=== PATIENT | female | born 1965 | race African-American/Black ===

== ENCOUNTER 2018-12-01 01:15 | Emergency (ER) | payer SELFPAY ==
[2018-12-01] MEDS ORDERED: Ibuprofen 400 MG TAB ONE (01:44)
== END 2018-12-01 01:55 | disposition home or self-care (01) ==
LOC: MADERS 01:15
DX: S39.012A Strain of muscle, fascia and tendon of lower back, initial encounter (principal); E78.5 Hyperlipidemia, unspecified; E11.9 Type 2 diabetes mellitus without complications; Z79.4 Long term (current) use of insulin; E03.9 Hypothyroidism, unspecified; I10 Essential (primary) hypertension; E66.9 Obesity, unspecified; F32.9 Major depressive disorder, single episode, unspecified; X58.XXXA Exposure to other specified factors, initial encounter
CPT/HCPCS: 99283

== ENCOUNTER 2020-07-10 15:34 | Emergency (ER) | payer BC, SELFPAY ==
[~2020-07-10 15:34] MED LIST: Iopamidol 370 76% 125 ML VIAL FS ONE
--- NOTE | 2020-07-10 16:58 | RAD ---
XR Chest 1 View Portable HISTORY: Chest pain COMPARISON: 08/04/2011 FINDINGS: The heart size is normal. The lungs are well expanded without focal areas of consolidation, pneumoth orax or pleural effusions. Mild bilateral interstitial infiltrates are seen, new since the last exam. There are degenerative silvia nges in the spine.
[2020-07-10 17:37] LABS: #Eosinphils 0.2 thou/uL (0.0-0.7); #Monocytes 0.5 thou/uL (0.11-0.59); #Neutrophils 5.2 thou/uL (1.40-6.50); %Basophils 0.5 % (0.0-1.0); %Eosinophils 2.1 % (0.0-10.0); %Lymphocytes 25.1 % (21.0-51.0); %Monocytes 6.1 % (0.0-10.0); %Neutrophils 66.2 % (42.0-75.0); Hemoglobin 12.8 g/dL (12.0-16.0); Mean Corpuscular HGB CONC 32.1 g/dL (32.0-36.0); Mean Corpuscular Hemoglobin 26.5 pg (27.0-31.0); Mean Corpuscular Volume 82.8 fL (78.0-98.0); Mean Platelet Volume 6.4 fL (7.4-10.4); Platelet Count 226 thou/uL (130-400); RBC Distribution Width 14.9 % (11.5-14.5); Red Blood Cell (RBC) Count 4.81 mill/uL (4.20-5.40); White Blood Cell (WBC) Count 7.8 thou/uL (4.8-10.8)
[2020-07-10 17:52] LABS: ALT (SGPT) 25 U/L (8-55); AST (SGOT) 21 U/L (5-34); Albumin 3.2 g/dL (3.5-5.0); Alkaline Phosphatase 160 U/L (40-110); Anion Gap 16 mmol/L (10-20); BUN (Urea Nitrogen) 8 mg/dL (9.8-20.1); Bilirubin, Total 0.5 mg/dL (0.2-1.2); Calc. Creatinine Clearance 0 mL/min (70-130); Calcium 8.3 mg/dL (7.8-10.44); Carbon Dioxide 23 mmol/L (22-29); Chloride 105 mmol/L (98-107); Estimated GFR-MDRD 73; Globulin 4.1 g/dL (2.4-3.5); Glucose 163 mg/dL (70-105); Lipase 22 U/L (8-78); Potassium 3.2 mmol/L (3.5-5.1); Protein, Total 7.3 g/dL (6.0-8.3); Sodium 141 mmol/L (136-145)
[2020-07-10] MEDS ORDERED: predniSONE 20 MG TAB ONE (18:16)
[2020-07-10] MEDS ORDERED: Sodium Chloride 0.9% 500 ML ONE (18:16)
[2020-07-10] MEDS ORDERED: Potassium Chloride 20 MEQ TAB ONE (18:18)
--- NOTE | 2020-07-10 20:39 | CT ---
CT PULMONARY ANGIOGRAM WITH IV CONTRAST AND 3D MIP RECONSTRUCTIONS: Date: 07/10/2020 PROVIDED CLINICAL HISTORY: Chest pain and shortness of breath. FINDINGS: No comparisons. The contrast bolus is suboptimal. There is no evidence for central or proximal segmental pulmonary em bolus. Vascular calcification is seen. There is no evidence for thoracic lymph node enlargement. There are multifocal parenchymal opacities consisting of primarily ground-glass opacity and interstit ial thickening. These are predominantly peripherally located. There is relative sparing of the lung b ases. There is no pleural fluid or pneumothorax apparent. The airway appears patent and of normal joselyn iber. The visualized portions of the upper abdomen demonstrate no acute abnormality. The osseous stru ctures demonstrate no concerning lytic or blastic lesions. There is a mild pericardial effusion. IMPRESSION: 1. Limited study without evidence for central or proximal segmental pulmonary embolus. 2. Multifocal parenchymal opacities, nonspecific, but typical for COVID pneumonia. 3. Mild pericardial effusion. POS: FIDELIA
[2020-07-10 20:52] LABS: Troponin I Less than 0.010 ng/mL (< 0.028)
== END 2020-07-10 21:10 | disposition home or self-care (01) ==
LOC: MADERS 15:34
DX: R07.9 Chest pain, unspecified (principal); Z86.19 Personal history of other infectious and parasitic diseases; I25.10 Atherosclerotic heart disease of native coronary artery without angina pectoris; E11.9 Type 2 diabetes mellitus without complications; E03.9 Hypothyroidism, unspecified; E78.5 Hyperlipidemia, unspecified; E78.00 Pure hypercholesterolemia, unspecified; I10 Essential (primary) hypertension; E66.9 Obesity, unspecified; F32.9 Major depressive disorder, single episode, unspecified; Z79.82 Long term (current) use of aspirin; Z79.4 Long term (current) use of insulin; Z79.899 Other long term (current) drug therapy
CPT/HCPCS: 36415; 71045; 71275; 80053; 83690; 84484; 85025; 85379; 93005; 96360; J7030; J7512; Q9967

== ENCOUNTER 2020-09-09 10:40 | Outpatient (CLI) | payer BC ==
--- NOTE | 2020-09-09 10:59 | RAD ---
XR Chest Pa Lat STANDARD HISTORY: Pneumonia COMPARISON: 07/10/2020 FINDINGS: The heart size is normal. The lungs are well expanded without focal areas of consolidation, pneumothorax or pleural effusions. IMPRESSION: No radiographic evidence of acute cardiopulmonary process.
== END 2020-09-09 10:41 | disposition home or self-care (01) ==
LOC: MADLAB 10:40 → MADRAD 10:41
PROVIDERS: ATTEND Internal Medicine Sleep Medicine
DX: U07.1 COVID-19 (principal); J18.9 Pneumonia, unspecified organism
CPT/HCPCS: 71046

== ENCOUNTER 2021-12-25 11:14 | Outpatient (CLI) | payer OTHER | END 2021-12-25 11:15 | disposition home or self-care (01) | LOC: MADLAB 11:14 | PROVIDERS: ATTEND Physician Assistant | DX: Z01.818 Encounter for other preprocedural examination (principal) | CPT/HCPCS: 71046 ==

== ENCOUNTER 2023-02-18 10:38 | Emergency (ER) | payer OTHER, MEDICAID ==
[2023-02-18] MEDS ORDERED: Acetaminophen/Codeine 30-300mg Tablet ONE (12:56)
== END 2023-02-18 13:45 | disposition home or self-care (01) ==
LOC: MADERS 10:38
DX: S73.102A Unspecified sprain of left hip, initial encounter (principal); M16.12 Unilateral primary osteoarthritis, left hip; I25.10 Atherosclerotic heart disease of native coronary artery without angina pectoris; E11.9 Type 2 diabetes mellitus without complications; E03.9 Hypothyroidism, unspecified; I10 Essential (primary) hypertension; E66.9 Obesity, unspecified; E78.00 Pure hypercholesterolemia, unspecified; W54.1XXA Struck by dog, initial encounter; Y93.01 Activity, walking, marching and hiking; Z79.4 Long term (current) use of insulin; Z79.82 Long term (current) use of aspirin; Z79.899 Other long term (current) drug therapy

== ENCOUNTER 2023-06-02 12:40 | Outpatient (CLI) | payer OTHER | END 2023-06-02 12:41 | disposition home or self-care (01) | LOC: MADRAD 12:40 | PROVIDERS: ATTEND Orthopaedic Surgery | DX: M54.50 Low back pain, unspecified (principal); M47.816 Spondylosis without myelopathy or radiculopathy, lumbar region | CPT/HCPCS: 72120 ==

== ENCOUNTER 2023-09-29 13:07 | Outpatient (CLI) | payer OTHER, MEDICAID | END 2023-09-29 13:08 | disposition home or self-care (01) | LOC: MADRAD 13:07 | PROVIDERS: ATTEND Orthopaedic Surgery | DX: M54.2 Cervicalgia (principal); M47.812 Spondylosis without myelopathy or radiculopathy, cervical region | CPT/HCPCS: 72040 ==

== ENCOUNTER 2024-07-30 11:03 | Emergency (ER) | payer MEDICARE ==
[2024-07-30 11:31] LABS: Bilirubin Negative (Negative); Blood, Urine Trace (Negative); Glucose, Urine (Dipstick) Negative (Negative); Ketone, Urine Negative (Negative); Leukocyte Negative (Negative); Nitrite Negative (Negative); Protein, Urine (Dipstick) Negative (Neg-Trace); Specific Gravity, Urine 1.015 (1.005-1.030); pH, Urine 6.5 (5.0-9.0)
[2024-07-30 11:32] LABS: Clarity Hazy (Clear)
[2024-07-30 11:39] LABS: CAUTI Indications for Culture Pelvic or flank pain; RBC/HPF 0-3 HPF (0-3); WBC/HPF 0-3 HPF (0-3)
[2024-07-30 11:40] LABS: Bacteria/HPF Rare-Few HPF (None Seen)
[2024-07-30] MEDS ORDERED: Ondansetron PF 4 MG/2 ML Vial ONE (11:40)
[2024-07-30] MEDS ORDERED: Famotidine/PF 20 mg/2ml Vial ONE (11:40)
[2024-07-30 11:41] LABS: Urine Culture Reflex No No
[2024-07-30 11:55] LABS: ALT (SGPT) 593 U/L (8-55); AST (SGOT) 1034 U/L (5-34); Albumin 3.3 g/dL (3.4-4.8); Alkaline Phosphatase 201 U/L (40-110); Anion Gap 11 mmol/L (10-20); BUN (Urea Nitrogen) 12 mg/dL (9.8-20.1); Bilirubin, Total 1.7 mg/dL (0.2-1.2); Calc. Creatinine Clearance 0 mL/min (70-130); Calcium 9.1 mg/dL (7.8-10.44); Carbon Dioxide 29 mmol/L (23-31); Chloride 107 mmol/L (98-107); Estimated GFR 62; Globulin 4.3 g/dL (2.4-3.5); Glucose 182 mg/dL (80-115); Potassium 3.5 mmol/L (3.5-5.1); Protein, Total 7.6 g/dL (5.8-8.1); Sodium 143 mmol/L (136-145)
[2024-07-30 12:01] LABS: Band 2 % (5-11); Hematocrit 42.3 % (36.0-47.0); Hemoglobin 13.5 g/dL (12.0-16.0); Lymphocytes 10 % (21-51); MDiff Complete? YES; Mean Corpuscular Hemoglobin 27.1 pg (27.0-31.0); Mean Corpuscular Volume 84.7 fl (78.0-98.0); Monocytes 5 % (0-10); Neutrophil 83 % (42-75); Platelet Count 188 10x3/uL (130-400); RBC Distribution Width 12.8 % (11.5-14.5); Red Blood Cell (RBC) Count 4.99 mill/uL (4.20-5.40); White Blood Cell (WBC) Count 10.4 10x3/uL (4.8-10.8)
[2024-07-30] MEDS ORDERED: Morphine 4 MG/ML VIAL ONE (12:19)
[2024-07-30 12:46] LABS: Lipase 3310 U/L (8-78)
[2024-07-30] MEDS ORDERED: HYDROmorphone 0.5 MG/0.5 ML SYRINGE ONE (13:06)
[2024-07-30] MEDS ORDERED: Sodium Chloride 0.9% 1,000 ML ONE ×2 (13:53→16:35)
[2024-07-30] MEDS ORDERED: Promethazine HCl 25 MG/ML VIAL ONE (14:53)
== END 2024-07-30 17:52 | disposition short-term general hospital (02) ==
LOC: MADERS 11:03
DX: K85.90 Acute pancreatitis without necrosis or infection, unspecified (principal); E11.9 Type 2 diabetes mellitus without complications; I10 Essential (primary) hypertension; E78.00 Pure hypercholesterolemia, unspecified; E03.9 Hypothyroidism, unspecified; Z79.4 Long term (current) use of insulin; Z79.899 Other long term (current) drug therapy; Z79.82 Long term (current) use of aspirin
CPT/HCPCS: 74176; 80053; 81001; 83690; 85025; 96374; 96375; J1170; J2272; J2405; J2550; J3490; J7030

== ENCOUNTER 2025-10-12 01:51 | Emergency (ER) | payer MEDICARE, OTHER ==
[2025-10-12] MEDS ORDERED: Orphenadrine Citrate 60 MG/2 ML VIAL ONE (03:17)
[2025-10-12 03:41] LABS: ALT (SGPT) 142 U/L (Less than 34); AST (SGOT) 92 U/L (11-34); Albumin 3.9 g/dL (3.1-4.5); Anion Gap 18 mmol/L (10-20); BUN (Urea Nitrogen) 18 mg/dL (9.8-20.1); Bilirubin, Total 0.2 mg/dL (0.3-1.2); CK (CPK) 105 U/L (29-168); Calc. Creatinine Clearance 0 mL/min (70-130); Calcium 10.2 mg/dL (7.8-10.44); Carbon Dioxide 25 mmol/L (23-31); Chloride 104 mmol/L (98-107); Globulin 4.9 g/dL (2.4-3.5); Glucose 142 mg/dL (80-115); Lipase 52 U/L (8-78); Potassium 4.8 mmol/L (3.5-5.1); Sodium 142 mmol/L (136-145)
[2025-10-12 04:29] LABS: Troponin I Less than 0.010 ng/mL (< 0.028)
[2025-10-12 04:39] LABS: #Basophils 0.1 thou/uL (0.0-0.2); #Eosinophils 0.3 thou/uL (0.0-0.7); #Lymphocytes 3.2 thou/uL (1.20-3.40); #Monocytes 0.6 thou/uL (0.11-0.59); #Neutrophils 6.4 thou/uL (1.40-6.50); %Basophils 0.8 % (0.0-1.0); %Eosinophils 3.1 % (0.0-10.0); %Lymphocytes 30.3 % (21.0-51.0); %Monocytes 5.7 % (0.0-10.0); %Neutrophils 60.1 % (42.0-75.0); Hematocrit 43.3 % (36.0-47.0); Hemoglobin 13.6 g/dL (12.0-16.0); Mean Corpuscular Hemoglobin 27.6 pg (27.0-31.0); Mean Corpuscular Volume 87.6 fl (78.0-98.0); Platelet Count 205 10x3/uL (130-400); Red Blood Cell (RBC) Count 4.95 mill/uL (4.20-5.40); White Blood Cell (WBC) Count 10.6 10x3/uL (4.8-10.8)
[2025-10-12 04:51] LABS: Alkaline Phosphatase 166 U/L (40-110); Magnesium 2.0 mg/dL (1.6-2.6)
== END 2025-10-12 05:38 | disposition home or self-care (01) ==
LOC: MADERS 01:51
DX: S29.012A Strain of muscle and tendon of back wall of thorax, initial encounter (principal); E11.9 Type 2 diabetes mellitus without complications; E78.5 Hyperlipidemia, unspecified; I10 Essential (primary) hypertension; E66.9 Obesity, unspecified; I25.10 Atherosclerotic heart disease of native coronary artery without angina pectoris; E03.9 Hypothyroidism, unspecified; Z79.890 Hormone replacement therapy; Z79.82 Long term (current) use of aspirin; Z79.899 Other long term (current) drug therapy; X58.XXXA Exposure to other specified factors, initial encounter
CPT/HCPCS: 71250; 74177; 80053; 82550; 83690; 83735; 83880; 84484; 85025; 85379; 93005; J2360